=== PATIENT | male | born 1945 | race Caucasian/White ===

== ENCOUNTER 2016-06-27 11:27 | Emergency (ER) | payer MEDICARE, MEDICAID ==
[~2016-06-27] VITALS: Ht 182.9 cm; Wt 65.8 kg
[~2016-06-27 11:27] MED LIST: REST30CA PO; SUMA100T2 PO
[2016-06-27 11:33] VITALS: BP 175/116; PULSE 78; RESP 16; TEMP 97.5; O2SAT 93
[2016-06-27 11:58] VITALS: BP 179/103; PULSE 81; RESP 18; O2SAT 96
[2016-06-27] MEDS ORDERED: AMIT25TA9 PO (12:07)
[2016-06-27] MEDS ORDERED: SUMA100T2 PO (12:07)
[2016-06-27] MEDS ORDERED: REST30CA PO (13:14)
--- NOTE | 2016-06-27 13:14 | PD ---
HPI Chief Complaint: General Weakness Time Seen by Provider: 12:12 Travel History International Travel<30 days: No Contact w/Intl Traveler<30days: No Traveled to known affect area: No History of Present Illness HPI This 70-year-old male is complaining of inability to sleep. He has been having a problem with insomnia since 2014 when he had surgery for some skin cancers on his face. He has seen multiple physicians for this problem. He has tried multiple medications that he says the only thing that seemed to help his temazepam. He is currently on amitriptyline and has not helped. He says he has only slept a few hours past week. He has never seen a psychiatrist. He is generally healthy except for this insomnia PFSH Past Medical History Cardiac Catheterization: Yes Cardiovascular Problems: Yes (HTN) Diminished Hearing: No Genitourinary: Yes (enlarged prostate) Headaches: Yes Hypertension: Yes Insomnia: Yes Musculoskeletal: Yes (LEFT FOOT SWELLING CHRONIC, CHRONIC NECK AND BACK PAIN) Immunizations Current: Yes Migraines: Yes Ulcer: Yes (CHRONIC VENOUS STASIS ULCERS) Tetanus Vaccination: Unknown Influenza Vaccination: No (allergy) Past Surgical History Other Surgery: Yes (PILONIDAL SINUS SKIN CANCER) Social History Alcohol Use: No Tobacco Use: Yes (2-3 CIGS A DAY) Substance Use: No Allergies-Medications (Allergen,Severity, Reaction): Coded Allergies: Opiate Agonists (Narcotics) (Verified Allergy, Intermediate, HEADACHES, ) Codeine (Verified Allergy, Mild, HEADACHE, 06/27/16) Acetaminophen (Verified Adverse Reaction, Unknown, "KIDNEY PAIN", 06/27/16) Reported Meds & Prescriptions Reported Meds & Active Scripts Active Reported Sumatriptan (Sumatriptan Succinate) 100 Mg Tab 100 Mg PO ONCE PRN If a satisfactory response has not been obtained at 2 hours, a second dose may be administered Amitriptyline (Amitriptyline HCl) 25 Mg Tab 25 Mg PO HS Review of Systems General / Constitutional: No: Fever, Chills Eyes: No: Diploplia, Blurred Vision HENT: No: Headaches, Vertigo Cardiovascular: No: Chest Pain or Discomfort, Palpitations Respiratory: No: Cough, Shortness of Breath Gastrointestinal: No: Vomiting, Diarrhea Genitourinary: No: Frequency, Dysuria Musculoskeletal: No: Myalgias, Arthralgias Skin: No Rash Neurologic: No: Weakness, Dizziness Psychiatric: Positive: Anxiety, No: Suicidal Ideations, Substance Abuse Endocrine: No: Heat Intolerance Hematologic/Lymphatic: No: Easy Bruising Physical Exam Narrative GENERAL: Thin male SKIN: Focused skin assessment warm/dry. HEAD: Atraumatic. Normocephalic. EYES: Pupils equal and round. No scleral icterus. No injection or drainage. ENT: No nasal bleeding or discharge. Mucous membranes pink and moist. NECK: Trachea midline. No JVD. CARDIOVASCULAR: Regular rate and rhythm. No murmur appreciated. RESPIRATORY: No accessory muscle use. Clear to auscultation. Breath sounds equal bilaterally. GASTROINTESTINAL: Abdomen soft, non-tender, nondistended. Hepatic and splenic margins not palpable. MUSCULOSKELETAL: No obvious deformities. No clubbing. No cyanosis. No edema. NEUROLOGICAL: Awake and alert. No obvious cranial nerve deficits. Motor grossly within normal limits. Normal speech. PSYCHIATRIC: He is somewhat anxious. He doesn't appear to have insight into his problem Data Data Last Documented VS Vital Signs Date Time Temp Pulse Resp B/P Pulse Ox O2 Delivery O2 Flow Rate FiO2 06/27/16 11:58 93 Room Air 06/27/16 11:58 81 18 179/103 06/27/16 11:33 97.5 [facility] Medical Decision Making Medical Screen Exam Complete: Yes Emergency Medical Condition: Yes Medical Record Reviewed: Yes Differential Diagnosis Differential includes insomnia Narrative Course This gentleman insomnia is having major effects on his life. He says he has not slept much for the past week. He says that temazepam as he only medication that helps him. I will prescribe for some form him I recommended that he see a psychiatrist Referrals: Kiran Levy MD Scripts Temazepam (Restoril)30 Mg Cap30 Mg PO HS PRN (INSOMNIA) #20 CAP Ref 0 Prov:Jim Baptiste MD 06/27/16 Disposition: 01 DISCHARGE HOME Condition: Stable Jim Baptiste MD Jun 27, 2016 13:14
[2016-06-27 13:40] VITALS: BP 168/100
== END 2016-06-27 13:54 | disposition home or self-care (01) ==
LOC: PHED 11:27
DX: G47.00 Insomnia, unspecified (principal); I10 Essential (primary) hypertension
CPT/HCPCS: 99283

== ENCOUNTER 2016-07-26 09:02 | Emergency (ER) | payer MEDICARE, MEDICAID ==
[~2016-07-26] VITALS: Ht 180.3 cm; Wt 65.8 kg
[~2016-07-26 09:02] MED LIST changes: +AMIT25TA9 PO
[2016-07-26 09:05] VITALS: BP 183/120; PULSE 77; RESP 16; TEMP 98.3; O2SAT 94
[2016-07-26] MEDS ORDERED: AMBI5TAB PO (09:23)
--- NOTE | 2016-07-26 09:23 | PD ---
HPI Chief Complaint: Anxiety Time Seen by Provider: 09:16 Travel History International Travel<30 days: No Contact w/Intl Traveler<30days: No Traveled to known affect area: No History of Present Illness HPI Patient is a 70-year-old male presents to the emergency department with complaint of insomnia. Patient states that for the last 2 years he has been struggling with insomnia. States that at night he feels anxious, his mind races and he can't shut it off. He is followed by neurologist, Dr. Abad, who has prescribed him temazepam and amitriptyline for this. Patient states these have not been effective. He states that he's been reading and is questioning whether Ambien may not be helpful for him. Patient states that when he doesn't sleep well for several days in a row he feels tired, shaky. All of these are chronic symptoms, and not acutely changed. PFSH Past Medical History Hx Anticoagulant Therapy: No Anxiety: Yes Cardiac Catheterization: Yes Cardiovascular Problems: Yes (HTN) Diabetes: No Diminished Hearing: No Genitourinary: Yes (enlarged prostate) Headaches: Yes Hypertension: Yes Insomnia: Yes Musculoskeletal: Yes (LEFT FOOT SWELLING CHRONIC, CHRONIC NECK AND BACK PAIN) Immunizations Current: Yes Migraines: Yes Ulcer: Yes (CHRONIC VENOUS STASIS ULCERS) Influenza Vaccination: No Past Surgical History Other Surgery: Yes (PILONIDAL SINUS SKIN CANCER) Social History Alcohol Use: No Tobacco Use: Yes (2-3 CIGS A DAY) Substance Use: No Allergies-Medications (Allergen,Severity, Reaction): Coded Allergies: Opiate Agonists (Narcotics) (Verified Allergy, Intermediate, HEADACHES, ) Codeine (Verified Allergy, Mild, HEADACHE, 07/26/16) Acetaminophen (Verified Adverse Reaction, Unknown, "KIDNEY PAIN", 07/26/16) Reported Meds & Prescriptions Reported Meds & Active Scripts Active Ambien (Zolpidem Tartrate) 5 Mg Tab 5 Mg PO HS PRN Restoril (Temazepam) 30 Mg Cap 30 Mg PO HS PRN Reported Sumatriptan (Sumatriptan Succinate) 100 Mg Tab 100 Mg PO ONCE PRN If a satisfactory response has not been obtained at 2 hours, a second dose may be administered Amitriptyline (Amitriptyline HCl) 25 Mg Tab 25 Mg PO HS Review of Systems Except as stated in HPI: all other systems reviewed are Neg Physical Exam Narrative GENERAL: Disheveled elderly male in no acute distress, smelling heavily of tobacco SKIN: Focused skin assessment warm/dry. HEAD: Normocephalic. EYES: No scleral icterus. No injection or drainage. ENT: Mucous membranes pink and moist. NECK: Supple CARDIOVASCULAR: Regular rate and rhythm. Hypertensive RESPIRATORY: No accessory muscle use. MUSCULOSKELETAL: Normal gait NEUROLOGICAL: Awake and alert. Answers questions and follows commands appropriately. Motor grossly within normal limits. Normal speech. PSYCHIATRIC: Appropriate mood and affect; insight and judgment normal. Data Data Last Documented VS Vital Signs Date Time Temp Pulse Resp B/P Pulse Ox O2 Delivery O2 Flow Rate FiO2 07/26/16 09:05 98.3 77 16 183/120 94 MDM Medical Decision Making Medical Screen Exam Complete: Yes Emergency Medical Condition: Yes Medical Record Reviewed: Yes Differential Diagnosis 70-year-old male with history of chronic insomnia here with complaint of same. Patient is managed on tricyclic, benzodiazepine for insomnia and these have not been helping. He is followed by a neurologist for this. Symptoms are all chronic in nature. Discussed using a genuine sleep aid like Ambien, trazodone. Patient prefers Ambien as he states he is read a lot about this. Given his age, discussed starting with a low dose, 5 mg to see if this is effective, increasing to 10 mg that it is not. Patient is already supplementing with melatonin at home. Sleeping in dimly lit room, no TV, etc. Patient was encouraged to follow up with his neurologist for management of his chronic symptoms, refill of Ambien that this is effective. Narrative Course See above Diagnosis Primary Impression: Insomnia Qualified Code: F51.01 - Primary insomnia Referrals: Daniel Warren MD call for appointment Additional Instructions: Ambien as prescribed for insomnia. Try 5 mg at night. This is one tablet. If this is not effective in the increased to 2 tablets, [address] Warren follow-up appointment as discussed. Med/Other Pt SpecificInfo: Prescription(s) given Scripts Zolpidem (Ambien)5 Mg Tab5 Mg PO HS PRN (INSOMNIA) #15 TAB Ref 0 Prov:Maribel Burton MD 07/26/16 Disposition: 01 DISCHARGE HOME Condition: Stable Maribel Burton MD July 26, 2016 09:23
== END 2016-07-26 09:33 | disposition home or self-care (01) ==
LOC: PHED 09:02
DX: F51.01 Primary insomnia (principal); I10 Essential (primary) hypertension; Z72.0 Tobacco use; Z86.59 Personal history of other mental and behavioral disorders; Z86.79 Personal history of other diseases of the circulatory system; Z87.438 Personal history of other diseases of male genital organs; Z87.39 Personal history of other diseases of the musculoskeletal system and connective tissue; Z86.69 Personal history of other diseases of the nervous system and sense organs
CPT/HCPCS: 99283

== ENCOUNTER 2016-08-20 07:38 | Emergency (ER) | payer MEDICARE, MEDICAID ==
[~2016-08-20] VITALS: Ht 182.9 cm; Wt 67.1 kg
[~2016-08-20 07:38] MED LIST changes: +AMBI5TAB PO
[2016-08-20 07:47] VITALS: BP 156/103; PULSE 83; RESP 16; TEMP 98.1; O2SAT 94
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
== END 2016-08-20 09:28 | disposition left against medical advice (07) ==
LOC: PHED 07:38
DX: R42 Dizziness and giddiness (principal); G47.00 Insomnia, unspecified; I10 Essential (primary) hypertension; F17.210 Nicotine dependence, cigarettes, uncomplicated
CPT/HCPCS: 99281